=== PATIENT | female | born 1945 | race Caucasian/White ===

== ENCOUNTER 2021-08-20 23:12 | Observation (INO) | payer OTHER ==
[~2021-08-20] VITALS: Ht 165.1 cm; Wt 93.4 kg
[~2021-08-20 23:12] MED LIST: ATENOLOL-CHLOR1 EACH PO; CALCIUM OYSTER500 MG PO; MOBIC15 MG PO; NEXIUM40 MG PO; PREMARIN0.3 MG PO; VITAMIN D400 UNI1
[2021-08-20 23:14] VITALS: BP 125/65
[2021-08-21 04:16] LABS: ABSOLUTE BASOPHILS 0.1 thou/uL (0.0-0.2); ABSOLUTE EOSINOPHILS 0.2 thou/uL (0.0-0.7); ABSOLUTE LYMPHOCYTES 2.3 thou/uL (0.8-5.3); ABSOLUTE MONOCYTES 1.1 thou/uL (0.0-1.2); ABSOLUTE NEUTROPHILS 5.1 thou/uL (1.6-8.1); BASOPHILS 1.5 %; EOSINOPHILS 1.8 %; HEMOGLOBIN 14.1 gm/dL (12.0-15.0); LYMPHOCYTES 25.7 %; MCHC 33.7 g/dL (28.0-37.0); MCV 89.2 fL (80.0-100.0); MPV 10.5 fl. (7.2-11.1); NUCLEATED RBCS 0 /100WBC; PLATELET COUNT* 201 thou/uL (150-400); RBC 4.71 mil/uL (4.20-5.00); RDW-CV 14.2 % (10.5-14.5); WBC 8.8 thou/uL (4.0-11.0)
[2021-08-21 04:36] LABS: CALCIUM 9.6 mg/dL (8.5-10.1); CREATININE 1.1 mg/dL (0.6-1.3)
[2021-08-21 04:37] LABS: APTT 21.9 Seconds (25.0-31.3); PROTIME 10.3 Seconds (9.20-11.50)
[2021-08-21 04:45] LABS: TOTAL BILIRUBIN 0.9 mg/dL (<0.1-1.0); TOTAL PROTEIN 6.9 g/dL (6.4-8.2)
[2021-08-21 04:54] LABS: POTASSIUM 2.8 mmol/L (3.5-5.1)
[2021-08-21 09:00] VITALS: BP 108/54
--- NOTE | 2021-08-21 10:03 | EKG ---
[place] [address] ELECTROCARDIOGRAM REPORT Name: CHARISSA MADDEN Room: [place] [address] ADM IN [facility]#: [id number] Admission: 08/21/21 Attend Phys: Shaan Olivia Discharge: Date of : 43 Date of Service: 08/20/21 2317 Report #: [id number] THIS REPORT FOR: //name// [facility] ED Test Date: 2021-08-20 Test Time: 23:17:59 Pat Name: CHARISSA MADDEN Department: Room: [facility] Gender: F Mattress Packer: : 1945 Requested By: Krystina Robertson Order Number: [id number] MD: Gokul Meza Measurements Intervals [place] Rate: 90 P: 75 HI: 168 QRS: -25 QRSD: 160 T: 33 QT: 362 QTc: 443 Interpretive Statements Sinus rhythm Nonspecific intraventricular conduction delay Inferior infarct, old possible Compared to ECG 08/29/2011 09:19:26 Intraventricular conduction delay now present Myocardial infarct finding now possible Sinus bradycardia no longer present Electronically Signed On 08-21-2021 10:03:14 BACKUP OPERATOR by Gokul Meza [email or web address] <ELECTRONICALLY SIGNED> By: Gokul Meza MD, FACC 08/21/21 1003 16 16 Gokul Meza MD, FAC /EPI
[2021-08-21 13:09] LABS: CHOLESTEROL 161 mg/dL (<200); HDL CHOLESTEROL 54 mg/dL (>40); LDL CHOLESTEROL 95 mg/dL (<100); TRIGLYCERIDE 61 mg/dL (<150); VLDL 12 mg/dL (<40)
[2021-08-21 13:11] LABS: SERUM ASSESSMENT CL
[2021-08-21 13:46] VITALS: BP 122/67
--- NOTE | 2021-08-21 13:53 | NUR ---
Attempted assessment x2 - pt is out of the room for testing.
[2021-08-21 15:50] VITALS: BP 122/67
[2021-08-21 16:00] VITALS: BP 106/53
--- NOTE | 2021-08-21 17:11 | NUR ---
ADMISSION COMPLETED. IN PREOP AREA AWAITING ROOM PLACEMENT. TELE MONITOR IN PLACE. SISTER IN LAW AT SIDE. CALL LIGHT IN REACH.
[2021-08-21 22:00] VITALS: BP 130/67
[2021-08-22 02:07] VITALS: BP 116/63
[2021-08-22 04:45] LABS: HEMOGLOBIN 13.1 gm/dL (12.0-15.0); MCHC 33.6 g/dL (28.0-37.0); MCV 89.3 fL (80.0-100.0); RBC 4.37 mil/uL (4.20-5.00); RDW-CV 14.1 % (10.5-14.5); WBC 6.3 thou/uL (4.0-11.0)
--- NOTE | 2021-08-22 04:57 | NUR ---
PT A&OX4, VSS ON ROOM AIR, IV SALINE LOCK, NO CO PAIN OR DISCOMFORT, SR ON TELE MONITOR. PT SLEEPING WELL, WILL CONTINUE TO MONITOR.
[2021-08-22 05:36] LABS: CALCIUM 8.7 mg/dL (8.5-10.1); POTASSIUM 3.2 mmol/L (3.5-5.1)
[2021-08-22 06:35] VITALS: BP 103/53
[2021-08-22 08:47] VITALS: BP 109/55
--- NOTE | 2021-08-22 09:16 | EKG ---
[place] [address] ELECTROCARDIOGRAM REPORT Name: CHARISSA MADDEN Room: [address] IN [facility]#: [id number] Admission: 08/21/21 Attend Phys: Shaan Olivia Discharge: Date of : 43 Date of Service: 08/21/21 0535 Report #: [id number] THIS REPORT FOR: //name// [facility] ED Test Date: 2021-08-21 Test Time: 05:35:25 Pat Name: CHARISSA MADDEN Department: Room: [facility] Gender: F Associate Consulting Engineer: ANDRADE : 1945 Requested By: Krystina Robertson Order Number: [id number] MD: Gokul Meza Measurements Intervals [place] Rate: 76 P: -57 [place]: 189 QRS: -24 QRSD: 96 T: 17 QT: 383 QTc: 431 Interpretive Statements Sinus rhythm Ventricular premature complex Low voltage, precordial leads RSR' in V1 or V2, right VCD Compared to ECG 08/20/2021 23:17:59 Ventricular premature complex(es) now present Low QRS voltage now present RSR' in V1 or V2 now present Myocardial infarct finding no longer present Electronically Signed On 08-22-2021 9:16:17 RN WOUND by Gokul Meza [email or web address] <ELECTRONICALLY SIGNED> By: Gokul Meza MD, [facility] 08/22/21 0916 0535 Gokul Meza MD, [facility] /EPI
--- NOTE | 2021-08-22 09:42 | NUR ---
CM ASSESSMENT: PT A&O, INDEPENDENT WITH ADL'S, ACTIVE, AND DRIVES. PT INFORMS THAT SHE RESIDES AT HOME WITH FAMILY. PT USES 0 DME. PT HAS PAST HX OF HH 'MANY YEAR AGO'. PT HAS 0 HX OF SNF. NO CM D/C PLANNING NEEDS ANTICIPATED. CM WILL REMAIN AVAILABLE TO ASSIST AND FOLLOW NEEDED.
[2021-08-22] MEDS ORDERED: HYDROCHLOROTHIA25 M1 PO (14:17)
[2021-08-22 15:45] VITALS: BP 109/55
[2021-08-22] MEDS ORDERED: K-DUR10 MEQ PO (15:59)
--- NOTE | 2021-08-22 16:14 | CARDNUC ---
[place] [address] CARDIAC NUCLEAR IMAGING REPORT Name: CHARISSA MADDEN Room: [address] IN [facility]#: [id number] Admission: 08/21/21 Attend Phys: Shaan Olivia Discharge: 08/22/21 Date of : 43 Date of Service: 08/22/21 1614 Report #: [id number] THIS REPORT FOR: cc: FAM - Family physician unknown FAM - Family physician unknown Derik Givens MD [facility] ~ APPROVED REPORT Imaging Protocol: Stress Tc-99m/Rest Tc-99m 2 days Study performed: 08/21/2021 12:30:00 Indication: Troponin elevation Patient Location: In-Patient Room #: 225 Stress Nurse: Shaneka Kauffman RN Ht: 5 ft 5 in Wt: 206 lbs BSA: 2.00 m2 BMI: 34.27 Medical History Medical History: HTN Medications: hctz, asa, atenolol/chlorthiadone Allergies: naproxen, oxycodone Cardiac Risk Factors: Age, Current Smoker, HTN Exercise History: Sedentary Meds Held (24 hrs): atenolol Resting Data Rest SPECT myocardial perfusion imaging was performed in supine position 30 minutes following the intravenous injection of 35.0 mCi of Tc-99m Sestamibi. Time of rest injection: 12:45 Date: 08/21/2021 The images were gated to evaluate regional wall motion and calculate left ventricular ejection fraction. Administration Route: IV Administration Site: Right Arm Pharmacologic Stress Pharmacologic stress test was performed by injecting Regadenoson 0.4 mg IV push over 10-15 seconds immediately followed by the intravenous injection of 31.6 mCi of Tc-99m Sestamibi. Time of stress injection: 11:50 Date: 08/22/2021 Administration Route: IV Administration Site: [place] [address] CARDIAC NUCLEAR IMAGING REPORT Name: CHARISSA MADDEN Room: [address]#: [id number] Admission: 08/21/21 Attend Phys: Shaan Olivia Discharge: 08/22/21 Date of : 43 Date of Service: 08/22/21 1614 Report #: [id number] Heart Rate at time of stress injection: 118 bpm. Gated Stress SPECT was performed 45 minutes after stress injection. Stress Test Details Stress Test: Pharmacologic stress testing performed using 0.4 mg of regadenoson per 5 mL given IV over 10 seconds. Reason for pharmacologic stress test: physical limitation. HR Max Heart Rate (APMHR): 144 bpm Resting HR: 94 bpm Target HR (85% APMHR): 122 bpm Max HR Achieved: 118 bpm % of APMHR: 81 Recovery HR: 107 bpm BP Resting BP: 106/72 mmHg Max BP: 98/52 mmHg Recovery BP: 112/63 mmHg ECG Resting ECG: Sinus Rhythm Stress ECG: Sinus Tachycardia ST Change: None Arrhythmia: None Recovery ECG: Sinus Rhythm Recovery ST Change: None Recovery Arrhythmia: None Clinical Reason for Termination: Completed protocol The patient tolerated Lexiscan protocol without significant cardiac symptoms. Stress ECG Conclusion The baseline twelve-lead EKG shows sinus rhythm with no significant ST segment abnormality. EKGs obtained during and post Lexiscan infusion show sinus rhythm and sinus tachycardia with no significant ST segment changes when compared to baseline. There were no stress-induced arrhythmias. Study Quality Study: Excellent Artifact: No artifact Study Data At rest, the left ventricular ejection fraction was 80%.. [place] [address] CARDIAC NUCLEAR IMAGING REPORT Name: JULIÁNCHARISSA CLEMENT Room: [address]#: [id number] Admission: 08/21/21 Attend Phys: Shaan Olivia Discharge: 08/22/21 Date of : 43 Date of Service: 08/22/21 1614 Report #: [id number] Post stress, the left ventricular ejection was 82%.. TID = 0.89. Perfusion Perfusion images obtained at rest and post Lexiscan stress show uniform uptake of the radioisotope throughout the myocardium. There were no defects to suggest infarct or ischemia. Wall Motion Normal left ventricular wall motion. Nuclear Conclusion ECG Findings: negative for ischemia Clinical Findings: negative for ischemia Nuclear Findings: negative for ischemia Exercise Capacity: not assessed Left Ventricular Function: normal Risk Study: low Perfusion images show no defect to suggest infarct or ischemia. Left ventricular systolic function is normal on gated studies. This is a low risk study. <Conclusion> The baseline twelve-lead EKG shows sinus rhythm with no significant ST segment abnormality. EKGs obtained during and post Lexiscan infusion show sinus rhythm and sinus tachycardia with no significant ST segment changes when compared to baseline. There were no stress-induced arrhythmias. <ELECTRONICALLY SIGNED> By: Derik Givens MD, FACC 08/22/21 1614 161 [id number] Derik Givens MD, FACC /INF
== END 2021-08-22 16:00 | disposition home or self-care (01) ==
LOC: M.ERS 23:12 → M.2W 08-21 05:41 → M.TBA-ER 08-21 05:41 → M.2W 08-21 19:04
PROVIDERS: Personal Emergency Response Attendant; Registered Nurse; ADMIT Internal Medicine; ATTEND Internal Medicine
DX: R07.89 Other chest pain (principal); Z20.822 Contact with and (suspected) exposure to COVID-19; R00.2 Palpitations; E87.6 Hypokalemia; I10 Essential (primary) hypertension; F32.9 Major depressive disorder, single episode, unspecified; K21.9 Gastro-esophageal reflux disease without esophagitis; E66.9 Obesity, unspecified; F17.200 Nicotine dependence, unspecified, uncomplicated; Z79.899 Other long term (current) drug therapy

== ENCOUNTER → 2021-08-27 | Outpatient (CLI) | payer OTHER ==
[~2021-08-27] MED LIST changes: +HYDROCHLOROTHIA25 M1 PO; +K-DUR10 MEQ PO
[2021-08-27 13:46] LABS: POTASSIUM 4.3 mmol/L (3.5-5.1)
== END ==
LOC: M.LAB 13:18
PROVIDERS: ATTEND Internal Medicine
DX: E87.6 Hypokalemia (principal)

== ENCOUNTER → 2021-09-25 | Outpatient (CLI) | payer OTHER | LOC: M.ULTRA 09-12 10:30 | PROVIDERS: ATTEND Registered Nurse Diabetes Educator | DX: R11.0 Nausea (principal); R19.7 Diarrhea, unspecified; Z90.49 Acquired absence of other specified parts of digestive tract ==

== ENCOUNTER → 2021-10-03 | Outpatient (CLI) | payer OTHER ==
[2021-10-03 11:43] LABS: CALCIUM 9.5 mg/dL (8.5-10.1); CREATININE 1.1 mg/dL (0.6-1.3); POTASSIUM 3.9 mmol/L (3.5-5.1)
== END ==
LOC: M.LAB 10:59
PROVIDERS: ATTEND Registered Nurse
DX: E87.6 Hypokalemia (principal)